=== PATIENT | male | born 2000 | race Caucasian/White ===

== ENCOUNTER 2021-03-19 22:57 | Emergency (ER) | payer OTHER ==
[2021-03-20] MEDS ORDERED: Proparacaine 0.5% Opth 15 ML BOT ONE (00:16)
[2021-03-20] MEDS ORDERED: Fluorescein Opthalmic Strip ONE (02:29)
== END 2021-03-20 02:56 | disposition home or self-care (01) ==
LOC: ERS 22:57
DX: H20.9 Unspecified iridocyclitis (principal); Z79.899 Other long term (current) drug therapy
CPT/HCPCS: 99283